=== PATIENT | female | born 1935 | race Caucasian/White ===

== ENCOUNTER 2016-12-20 07:02 | Inpatient (IN) | payer MEDICARE ==
--- NOTE | 2016-12-17 08:58 | HP ---
DATE OF CLINIC: 12/08/2016 MICHEL VIDAL : 1935 PLANNED PROCEDURE: Left Total Knee Arthroplasty DATE OF PROCEDURE: December 20, 2016 SURGEON: Sae Cabrera M.D. PCP: Dr. Naveed Bundy HISTORY OF PRESENT ILLNESS Michel Vidal is an 80 year old female. * Medication list reviewed with patient allergy list reviewed with patient. Mrs. Vidal is in today pre-operatively for her upcoming left total knee arthroplasty with Dr. Cabrera on 12/20/16. Patient presents in good spirits and is ready to proceed. She notes having a mild "cold" recently. No fever or constitutional symptoms. No prior surgical complications. Patient has visited [facility] ([facility] for post-operative rehab as she lives independently. Her recent consult with Dr. Cabrera follows: 80-year-old female here for consultation with respect to her left knee. She recently saw Lele Nina on 08/24/16. She has recently moved from [place]. 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 She has had prior intraarticular corticosteroid injections without lasting improvement. She had 3 series of viscosupplementation which "helped the right knee, but not the left". She has difficulty with weightbearing activities. She uses a cane and is limited to less than 2 blocks of walking. She is unable to squat, kneel and has difficulty rising from a chair or going up and down stairs. She has no radicular symptoms, no hip pain. Discomfort is global, but tends to be more medial. She is interested in discussion of definitive management options. Comorbidities include hypertension. After moving from [place] she has established a PCP with Dr. Naveed Bundy. She is interested in discussion of definitive management options. CURRENT MEDICATION * HydroCHLOROthiazide 25 MG Tablet 1 once a day 0 days, 0 refills * Losartan Potassium 50 MG Tablet [address] Ozzy Crane, 0 days, 0 refills * Simvastatin 20 MG Tablet 1 once a day 0 days, 0 refills PAST MEDICAL/SURGICAL HISTORY Reported: Medical: A history of cancer squamors cell, cardiac history, history of Arthritis, Depression, and Osteoporosis. Surgical / Procedural: Prior surgery nose 1997 and Breast surgery Left 1997. Surgical: * Hysterectomy 1993 SOCIAL HISTORY Behavioral: Quit smoking stopped 40 years ago after smoking 2 packs a day for 20 plus years. Smoking status: Former smoker. 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 ALLERGIES * Vicodin Reaction: itch REVIEW OF SYSTEMS Systemic: No fever and no recent weight change. Head: No head symptoms. Cardiovascular: No cardiovascular symptoms. Pulmonary: No pulmonary symptoms. Gastrointestinal: No gastrointestinal symptoms. Psychological: No psychological symptoms. Skin: No skin lesions and no rash. PHYSICAL FINDINGS * Vitals taken 12/08/2016 02:26 pm BP-Sitting R 132/80 mmHg 100 - 120/56 - 80 BP Cuff Size Regular Pulse Rate-Sitting 98 bpm 50 - 100 Temp-Oral 97 F 96 - 101 Height 60.5 in 59 - 68 Pain Level 10 * Vitals taken 12/08/2016 02:41 pm Height 61 in 59 - 68 Weight 203 lbs 94 - 170 Body Mass Index 38.4 kg/m2 Body Surface Area 1.90 m2 Ears, Nose, Throat: * ENT: normal. Lungs: * Clear to auscultation. Cardiovascular: Heart Rate and Rhythm: * Normal. Abdomen: * Normal. Neurological: Motor: * Dominant Hand = Left Hand. Patient is an obese female in no acute distress, normal-appearing mood and affect. On standing she has obvious genu varum bilaterally and walks with a stiff-legged, antalgic gait favoring the left. She has a somewhat difficult time stepping up to the exam table. Left knee exam shows skin integrity to be well-preserved, no wounds, rashes or lesions. She has an obvious varus deformity that is not correctable. Motion is 0-90 degrees actively, 0-100 degrees passively. She is tender medial greater than lateral, but fairly diffuse. Mild pain with patellar compression. Ligamentous exam shows 1+ laxity to varus stress. Drawer is negative. NT in the proximal tibial. Calf is soft and NT. Distal light touch sensation and motor function are grossly intact and symmetric. Pulses are palpable. Gentle rotation of the hip is non-irritable. Exam of the right knee shows skin integrity to be intact, no wounds, rashes or lesions. She does have a fixed varus deformity. Motion is 3-120 degrees passively. She is tender medial greater than lateral, fairly diffuse with a normal ligamentous exam. TESTS 4 views of bilateral knees from 05/14/16 as well as new radiographs from 08/24/16 of the left knee are reviewed. These show complete medial joint space loss with varus deformity on the left. There is periarticular sclerosis and marginal spurring. There are 2 calcifications posteromedially. There is fairly notable lateral facet narrowing as well. Lateral compartment is relatively well preserved. Right knee from her 05/14/16 films show similar changes with medial joint space loss, periarticular sclerosis and marginal spurring. Lateral and patellofemoral compartments are relatively well preserved. 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 PREVIOUS TESTS * Test: CBC WITH DIFF Report Date: 12/01/2016 WBC 5.8 10*3/mL MCV 87.8 fL BASOPHIL 0.7 % RBC 4.60 10*6/uL NEUTROPHILS 53.9 % MCH 29.8 pg MCHC 33.9 g/dL RDW 13.3 % PLATELET COUNT 189 10*3/mL IMM NEUT % 0.7 % IMM NEUT # 0.0 10*3/mL MONOCYTES 9.3 % EOSINOPHIL 1.5 % HCT 40.4 % HGB 13.7 g/L LYMPHOCYTE 33.9 % ANC 3.1 10*3/mL * Test: URINALYSIS Report Date: 12/01/2016 GLUCOSE NEGATIVE PH,URINE 7.0 SPEC. GRAVITY 1.015 KETONE NEGATIVE NITRITE NEGATIVE BLOOD NEGATIVE BILIRUBIN NEGATIVE APPEARANCE CLEAR PROTEIN NEGATIVE COLOR YELLOW LEUK ESTERASE NEGATIVE UROBILINOGEN NORMAL * Test: PROTHROMBIN TIME Report Date: 12/01/2016 PROTIME 10.7 s INR 1.02 * Test: PARTIAL THROMBOPLASTIN TIME Report Date: 12/01/2016 APTT 22.4 s Low * Test: COMPREHENSIVE METABOLIC PANEL Report Date: 12/01/2016 ALT/SGPT 35 U/L ALBUMIN 4.1 g/dL ALB/GLOB RATIO 1.6 BUN 14 mg/dL BUN/CREAT RATIO 23 High CALCIUM 9.8 mg/dL GLUCOSE 113 mg/dL High CREATININE 0.6 mg/dL SODIUM 139 meq/L POTASSIUM 3.8 meq/L CHLORIDE 102 meq/L CARBON DIOXIDE 27 meq/L ANION GAP 14 meq/L TOT PROTEIN 6.7 g/dL GLOBULIN 2.6 g/dL BILI,TOTAL 0.8 mg/dL AST/SGOT 22 U/L ALK PHOSPHATASE 52 U/L GFR 96 High * Test: MRSA SCREEN Report Date: 12/02/2016 MRSA SCREEN NEGATIVE * Test: MSSA SCREEN Report Date: 12/02/2016 MSSA SCREEN NEGATIVE FOR STAPHYLOCOCCUS AUREUS THERAPY * Patient fall risk screen positive. * Patient eligible for fall risk assessment. * Patient received fall risk assessment. PLAN * OTHER OxyCODONE HCl 5 MG TABS, 1or 2 tablets every 4 to 6 hours as needed-TO BE USED FOR AFTER SURGERY, 5 days, 0 refills TraMADol HCl 50 MG TABS, 1 po q 6 hours prn pain-TO BE USED FOR AFTER SURGERY, 5 days, 0 refills Vistaril 25 MG CAPS, 1or 2 tablets every 4 to 6 hours as needed-TO BE USED FOR AFTER SURGERY, 4 days, 0 refills * Total knee arthroplasty -Left Discussed with patient in detail the limitations, expectations as well as risks and possible complications of surgery including, but not limited to wound problems or infection, neurovascular injury, continued knee pain or dysfunction, including the possibility of prosthetic wear or failure over time that may require additional operative or non-operative treatment. Patient also realizes the perioperative risks including risks associated with anesthesia and would like to proceed. A full PAR conference was held, questions and concerns addressed and informed consent was obtained. Patient will be sent from my office for completion of the preoperative workup. [facility] consult for perioperative medical management. Patient will use aspirin 325mg daily for 6 weeks postoperatively for DVT prophylaxis. Patient would like to perform their postop rehab at [facility] with left total knee arthroplasty protocol. CARE TEAM Naveed Bundy MD [facility] CC: Naveed Bundy MD [facility] RS/sg
[~2016-12-20 07:02] MED LIST: CEFAZOLIN SODIUM 2 GRAM PREMIX 100 ML IV ONE; CELECOXIB 200 MG CAPSULE ONE; CLONIDINE HCL 0.1 MG/24 HR (7 DAY PATCH) TD ONE; FAMOTIDINE 20 MG TABLET ONE; GABAPENTIN 600 MG TABLET ONE; IV START KIT ONE; LACTATED RINGERS 1,000 ML ONE; ONDANSETRON 4 MG/2ML 2 ML VIAL ONE; OXYCODONE HCL 10 MG TAB.SR PO ONE; TRAMADOL HCL 50 MG TABLET ONE
[2016-12-20] MEDS ORDERED: TRAMADOL HCL 50 MG TABLET PO ONE (07:15)
[2016-12-20] MEDS ORDERED: ONDANSETRON 4 MG/2ML 2 ML VIAL IV ONE (07:15)
[2016-12-20] MEDS ORDERED: CELECOXIB 200 MG CAPSULE PO ONE (07:15)
[2016-12-20] MEDS ORDERED: GABAPENTIN 600 MG TABLET PO ONE (07:15)
[2016-12-20] MEDS ORDERED: CLONIDINE HCL 0.1 MG/24 HR (7 DAY PATCH) TD SCH (07:15)
[2016-12-20] MEDS ORDERED: CEFAZOLIN SODIUM 2 GRAM PREMIX 100 ML IV PRN (07:15)
[2016-12-20] MEDS ORDERED: OXYCODONE HCL 10 MG TAB.SR PO ONE (07:15)
[2016-12-20] MEDS ORDERED: FAMOTIDINE 20 MG TABLET PO ONE (07:15)
[2016-12-20] MEDS ORDERED: MIDAZOLAM HCL 1 MG/ML 2ML VIAL ONE ×2 (08:30→09:54)
[2016-12-20] MEDS ORDERED: FENTANYL 100 MCG/2 ML VIAL ONE (08:31)
[2016-12-20] MEDS ORDERED: SPINAL PROCEDURAL TRAY 1 EACH ONE (08:33)
[2016-12-20] MEDS ORDERED: ROPIVACAINE 0.2% 20 ML VIAL ONE (08:33)
[2016-12-20] MEDS ORDERED: NERVE BLOCK PROCEDURAL TRAY 1 EACH ONE (08:33)
[2016-12-20] MEDS ORDERED: POLYMYXIN B SULFATE 500,000 UNITS, BACITRACIN 25,000 UNITS in SODIUM CHLORIDE 3 L IRRIG... IR PRN (09:10)
[2016-12-20] MEDS ORDERED: TRANEXAMIC ACID 1,000 MG in SODIUM CHLORIDE 0.9% 100 ML IV PRN (09:10)
[2016-12-20] MEDS ORDERED: BUPIVACAINE 0.25% (MDV) 20 ML in SODIUM CHLORIDE 0.9% FLUSH 20 ML IF PRN (09:10)
[2016-12-20] MEDS ORDERED: BUPIVACAINE 0.25% (MDV) 24 ML, MORPHINE SULFATE 8 MG, EPINEPHRINE 0.3 MG in SODIUM CHLO... IF PRN (09:10)
[2016-12-20] MEDS ORDERED: LIDOCAINE 2% (PRES FREE) 5 ML VIAL ONE (10:10)
[2016-12-20] MEDS ORDERED: PROPOFOL 40 ML IV ONE (10:10)
[2016-12-20] MEDS ORDERED: DEXAMETHASONE SOD PHOS 4 MG/1 ML VIAL ONE (10:10)
[2016-12-20] MEDS ORDERED: EPHEDRINE SULFATE UD SYR 25 MG 25 MG/5 ML SYRINGE IV ONE (10:14)
[2016-12-20] MEDS ORDERED: ONDANSETRON 4 MG/2ML 2 ML VIAL IV PRN ×2 (10:26→12:50)
[2016-12-20] MEDS ORDERED: HYDROMORPHONE HCL 1 MG/ML SYRINGE IV PRN (10:26)
[2016-12-20] MEDS ORDERED: ATROPINE SULFATE 0.4 MG/1 ML VIAL IV PRN (10:26)
[2016-12-20] MEDS ORDERED: FENTANYL 100 MCG/2 ML VIAL IV PRN (10:26)
[2016-12-20] MEDS ORDERED: PROMETHAZINE HCL 25 MG/ML VIAL IM PRN (10:26)
[2016-12-20] MEDS ORDERED: NALOXONE HCL 0.4 MG/ML VIAL IV PRN (10:26)
[2016-12-20] MEDS ORDERED: LACTATED RINGERS 1,000 ML IV SCH (10:30)
[2016-12-20] MEDS ORDERED: ON-Q PUMP/ROPIVACAINE 0.2% 450 ML ONE (11:42)
[2016-12-20] MEDS ORDERED: PROPOFOL 20 ML IV ONE ×2 (11:56)
--- NOTE | 2016-12-20 12:01 | PCMBPN ---
Brief Post Op Note: Date of Procedure: 12/20/16 Preoperative Diagnosis: DJD left knee Postoperative Diagnosis: DJD left knee Procedure: left TKA Surgeon: Sae Cabrera MD Assist:Kelle (FAY) Anesthesia: Spinal/Adductor block (Colby) Findings: varus knee Condition: stable to PAR Complications: none IV Fluids: 1300 mLs of LR Urine Output: 150 mLs Estimated Blood Loss: 150 mLs Tourniquet Time: `40 minutes Specimens: [N/A] Implants: Attune Drains: none
[2016-12-20] MEDS: ON-Q PUMP/ROPIVACAINE 0.2% 450 ML in PREMIX BAG 1 EACH NB PRN (12:25)
[2016-12-20] MEDS ORDERED: CALCIUM CARBONATE 500 MG TAB.CHEW PO PRN (12:50)
[2016-12-20] MEDS ORDERED: TRAMADOL HCL 50 MG TABLET PO PRN (12:50)
[2016-12-20] MEDS ORDERED: HYDROMORPHONE HCL 0.5 MG/0.5 ML SYRINGE IV PRN (12:50)
[2016-12-20] MEDS ORDERED: KETOROLAC TROMETHAMINE 30 MG/ML 1 ML VIAL IV PRN (12:50)
--- NOTE | 2016-12-20 12:56 | RAD ---
HISTORY: Postop left TKR COMPARISON: Films on 08/24/2016 TECHNIQUE: two of the left knee FINDINGS: A total knee arthroplasty is present. Hardware is intact with out signs of failure or loosening. There is no fracture or dislocation. Postsurgical bandaging with soft tissue gas is present. Calcifications are present in the popliteal fossa, which could be vascular in nature. IMPRESSION: Intact hardware without fracture or dislocation. Satisfactory postoperative exam
[2016-12-20] MEDS ORDERED: ACETAMINOPHEN 500 MG TABLET PO SCH (13:00)
[2016-12-20 13:41] VITALS: BMI 38.3
[2016-12-20] MEDS ORDERED: PUMP TUBING ONE (15:50)
[2016-12-20] MEDS: D5 1/2NS with 20 mEq KCL 1,000 ML IV SCH (15:55)
[2016-12-20] MEDS: OXYCODONE HCL 5 MG TABLET PO PRN ×2 (16:00→21:08)
--- NOTE | 2016-12-20 17:57 | CONS ---
MICHEL MORALES [id number] HOSPITALIST CONSULATION DATE OF CONSULTATION: December 20, 2016 PHYSICIAN REQUESTING CONSULTATION: Sae Cabrera M.D. REASON FOR CONSULTATION: For assistance in the perioperative management of the patient's medical problems, and these medical problems include chronic essential hypertension, generalized osteoarthritis, and obesity. PROCEDURES PERFORMED DURING THE HOSPITALIZATION: Left total knee arthroplasty performed under spinal and adductor block. CHIEF COMPLAINT: Left knee pain. HISTORY OF PRESENT ILLNESS: Patient is an 81-year-old female with medical problems as listed above admitted for an elective left knee arthroplasty. PREOPERATIVE REVIEW OF SYSTEMS: Is negative for any recent fevers or chills. She denies any recent upper respiratory symptoms, cough, dyspnea, chest pain, shortness of breath, wheezing or palpitations. She has had no nausea, vomiting, abdominal pain, diarrhea or constipation. She does suffer from chronic arthralgias associated with her arthritis, primarily left knee pain. She denies any headaches, fainting, blackouts or seizures. She has had no urinary complaints. Review of systems is otherwise negative. PAST MEDICAL HISTORY: 1. She has had no recent hospitalization. 2. She has a history of chronic essential hypertension, stable on medications. 3. She denies any history of coronary artery disease. 4. She has had some hypercholesterolemia. 5. She has had some chronic depression which is stable off medications. 6. She has had generalized osteoarthritis. 7. History of multiple skin cancers. PAST SURGICAL HISTORY: Significant for: 1. Hysterectomy in 1993. 2. She had a basal cell cancer surgery removed from her nose in 1997. 3. She had a left breast surgery in 1997 for benign disease. 4. Tonsillectomy as a young adult. ALLERGIES: SHE REPORTS INTOLERANCE TO VICODIN WHICH CAUSED SEVERE ITCHING. CURRENT MEDICATIONS: Include: 1. Zocor 20 mg at bedtime. 2. Multivitamin once daily. 3. Cozaar 50 mg daily. 4. Hydrochlorothiazide 25 mg daily. 5. Enteric coated aspirin 81 mg daily. 6. In spite of her allergy, I believe she was taking [place] at home one to two tablets every four hours as needed for pain. FAMILY HISTORY: Significant for a father who had multiple myeloma and both of her parents had coronary artery disease. SOCIAL HISTORY: She is single, lives alone in [place]. She has two living sons. She is a former smoker. She quit 40 years ago after about a 30 pack-year history of smoking. She denies alcohol use. 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 Plans to recover in a residential facility like [facility]. She does have one son who lives locally. Her primary care provider is Dr. Delbert Bundy. PHYSICAL EXAMINATION: VITAL SIGNS: Body mass index is 38.4, weight is 92.1 kilograms. Temperature is 98.0, pulse 92, blood pressure 144/76, respirations 20, oxygen saturation are 100% on room air. GENERAL: This is an obese elderly female in no acute distress. HEENT: Is unremarkable. NECK: Supple without lymphadenopathy or thyromegaly. CHEST: Clear to auscultation bilaterally. HEART: Regular rate and rhythm without a murmur. ABDOMEN: Soft, nontender, nondistended with positive bowel sounds. PELVIC: Deferred. RECTAL: Deferred. EXTREMITIES: Showed no peripheral edema. She has a surgical dressing over the left knee. Dorsalis pedis pulses are 2+ in both feet. Capillary refill less than 2 seconds. SKIN: Warm, dry and intact. PREOPERATIVE LABORATORY STUDIES: Performed on December 01, 2016 included a CBC which was unremarkable with a hemoglobin of 13.7. Coagulation profile was normal. Chemistry profile also essentially normal. Urinalysis performed that day was negative. IMAGING: Chest x-ray on December 01, 2016 which showed no acute cardiopulmonary abnormality. She did have some evidence of a calcified nodule in the right upper lobe and some thoracic kyphosis and moderate spondylosis. EKG: I do not have access to any preoperative electrocardiograms. ASSESSMENT/PLAN: 1. Patient has chronic essential hypertension. She is chronically on Cozaar and hydrochlorothiazide. I will write parameters for these medications to be held if her systolic blood pressure is below 130 all of her medications will be held. If her systolic blood pressure is above 130, she can get her Cozaar and if above 140, she will get both drugs. 2. She has a history of generalized osteoarthritis which should be well managed with the usual postoperative pain medication cocktail. 3. Generalized obesity which complicates her care. 4. The hospitalist service will follow her in the perioperative period and she will return to the care of her primary care provider, Dr. Delbert Bundy, at discharge. 5. Venous thromboembolism risk is moderate and mechanical measures and aspirin will be likely used for prophylaxis. cc: Sae Cabrera M.D. Delbert Bundy M.D.
[2016-12-20] MEDS: CEFAZOLIN SODIUM 1 GRAM PREMIX 1 G in Premix (D5W) 50 ml 1 EACH IV SCH (18:07)
[2016-12-20] MEDS: ACETAMINOPHEN 500 MG TABLET PO SCH (21:07)
[2016-12-20] MEDS: ASCORBIC ACID 500 MG TABLET PO SCH (21:08)
[2016-12-20] MEDS: DOCUSATE SODIUM 100 MG CAPSULE PO SCH (21:08)
[2016-12-20] MEDS: HYDROXYZINE PAMOATE 25 MG CAPSULE PO PRN (22:09)
[2016-12-21] MEDS: D5 1/2NS with 20 mEq KCL 1,000 ML IV SCH ×4 (01:16→20:59)
[2016-12-21] MEDS: ACETAMINOPHEN 500 MG TABLET PO SCH ×4 (02:11→19:16)
[2016-12-21] MEDS: HYDROXYZINE PAMOATE 25 MG CAPSULE PO PRN (02:11)
[2016-12-21] MEDS: CEFAZOLIN SODIUM 1 GRAM PREMIX 1 G in Premix (D5W) 50 ml 1 EACH IV SCH (02:11)
[2016-12-21] MEDS: OXYCODONE HCL 5 MG TABLET PO PRN ×7 (02:12→21:05)
[2016-12-21 06:18] LABS: HEMATOCRIT 33.6 % (37.0-47.0); HEMOGLOBIN 10.6 gm/l (12.0-16.0); MEAN CELL VOLUME 93.6 fl (81.0-99.0); MEAN CORPUSCULAR HEMOGLOBIN 29.5 pg (27.0-31.0); MEAN CORPUSCULAR HGB CONC 31.5 g/dl (33.0-37.0); RED CELL DISTRIBUTION WIDTH 13.5 % (11.5-14.5)
[2016-12-21 06:41] LABS: CALCIUM 8.7 mg/dL (8.6-10.3)
[2016-12-21] MEDS ORDERED: REMOVE PATCH 1 EACH UNIT TD SCH (07:15)
[2016-12-21] MEDS: ON-Q PUMP/ROPIVACAINE 0.2% 450 ML in PREMIX BAG 1 EACH NB PRN (08:10)
[2016-12-21] MEDS: ASPIRIN (ENTERIC COATED) 325 MG TABLET.EC PO SCH (08:57)
[2016-12-21] MEDS: DOCUSATE SODIUM 100 MG CAPSULE PO SCH ×2 (08:57→21:05)
[2016-12-21] MEDS: MULTIVITAMINS 1 TAB TABLET PO SCH (08:58)
[2016-12-21] MEDS: CELECOXIB 200 MG CAPSULE PO SCH (08:58)
[2016-12-21] MEDS: ASCORBIC ACID 500 MG TABLET PO SCH ×2 (08:58→21:05)
[2016-12-21] MEDS ORDERED: CELECOXIB 100 MG CAPSULE PO SCH (09:00)
--- NOTE | 2016-12-21 11:09 | PDOC43 ---
- Subjective Findings: Pt seem this morning. She was asleep but awakes easily. Really doing well at this point. Subjective: Reports Flatus, Reports Pain Tolerable, Denies Chest Pain, Denies Shortness of Breath, Denies Nausea, Denies Vomiting, Denies Fever - Objective Vital Signs Temperature 98.4 F 12/21/16 07:25 Pulse Rate 70 12/21/16 08:35 Respiratory Rate 17 12/21/16 07:25 Blood Pressure 130/65 12/21/16 08:35 O2 Saturation by Pulse Oximetry 100 12/21/16 08:35 Oxygen Delivery Method Nasal Cannula Oxygen Flow Rate 2 Laboratory 12/21/16 05:30 12/21/16 05:30 12/21/16 05:30 RBC 3.59 L MCHC 31.5 L Estimated GFR 96 H Active Medication Orders Category Date Time Status Acetaminophen [Tylenol] Med 12/20/16 19:00 Active 1,000 mg PO Q6H Ascorbic Acid [Vitamin C] Med 12/20/16 21:00 Active 500 mg PO BID Aspirin (Enteric Coated) [Ecotrin] Med 12/21/16 09:00 Active 325 mg PO DAILY Bisacodyl [Dulcolax] Med 12/23/16 12:04 Active 10 mg [place] DAILY PRN Calcium Carbonate [Tums] Med 12/20/16 12:50 Active 1,000 - 2,000 mg PO Q2H PRN Celecoxib [Celebrex] Med 12/21/16 09:00 Active 200 mg PO DAILY D5 1/2NS with 20 mEq KCL [D51/2NS with 20 mEq KCL] 1, Med 12/20/16 12:50 Active 000 ml IV 125 mls/hr Docusate Sodium [Colace] Med 12/20/16 21:00 Active 100 mg PO BID Hydromorphone HCl [Dilaudid] Med 12/20/16 12:50 Active 0.5 mg IV Q1H PRN Hydroxyzine Pamoate [Vistaril] Med 12/20/16 12:50 Active 25 - 50 mg PO Q4H PRN Ketorolac Tromethamine [Toradol] Med 12/20/16 12:50 Active 30 mg IV Q6H PRN Magnesium Hydroxide [Milk of Magnesia] Med 12/21/16 12:04 Active 30 ml PO DAILY PRN Multivitamins [One-A-Day] Med 12/21/16 09:00 Active 1 tab PO DAILY Ondansetron 4 mg/2ml Vial [Zofran] Med 12/20/16 12:50 Active 4 - 6 mg IV Q6H PRN Oxycodone HCl [Roxicodone] Med 12/20/16 12:50 Active 5 - 10 mg PO Q4H PRN Remove Patch Med 12/21/16 12:04 Once 1 each TD X1 ONE Sodium Chloride 0.9% Flush [Normal Saline 10ml Flush] Med 12/20/16 12:50 Active 10 - 50 ml IV PRN PRN Sodium Chloride 0.9% Flush [Normal Saline 10ml Flush] Med 12/20/16 17:00 Active 10 ml IV Q8HR Tramadol HCl [Ultram] Med 12/20/16 12:50 Active 50 mg PO Q6H PRN Intake and Output 12/19/16 12/20/16 12/21/16 23:59 23:59 23:59 Intake Total 2240 2452 Output Total 1250 2050 Balance 990 402 General: Afebrile HEENT: Atraumatic Lungs: Normal Air Movement Abdomen: Non-Distended Skin: Normal Color Neurological: Alert - Left Lower Extremity Motor: Extensor Hallucis Longus: 5/5, Tibialis Anterior: 5/5, Gastrocnemius: 5/5 , Peroneals: 5/5, Quadriceps: 3/5 Gross Sensation to Light Touch: Present: Deep Peroneal Nerve Motion: Calf soft NT Knee rom 0-60 Ind SLR - Problems (1) Status post left knee replacement Status: AcuteAssessment/Plan: Pod#1 1. Physical Therapy:Mobilize with PT/OT. Encouraged bed exercise 2. Pain Control:Per protocol and nerve cath 3. DVT Prophylaxis: ASA, foot pumps and mobility 4. Disposition:Doing well at this point plan for DC tomorrow if meets criteria 5. Medical Issues: Management per hospitalist appreciate the care and consult
[2016-12-21] MEDS ORDERED: REMOVE PATCH 1 EACH UNIT TD ONE (12:04)
[2016-12-21] MEDS ORDERED: MAGNESIUM HYDROXIDE 30 ML UDCUP PO PRN (12:04)
--- NOTE | 2016-12-21 14:08 | PDOC43 ---
- Subjective Chief Complaint: knee pain Patient awake, pain tolerable about a 3. Denies any shortness of breath, she is tolerating diet. Subjective: Reports Pain Tolerable, Reports Tolerating Diet Well, Denies Shortness of Breath, Denies Cough, Denies Chest Pain, Denies Abdominal Pain, Denies Nausea, Denies Vomiting - Objective Vital Signs Temperature 97.9 F 12/21/16 11:25 Pulse Rate 76 12/21/16 11:25 Respiratory Rate 17 12/21/16 11:25 Blood Pressure 117/59 12/21/16 11:25 O2 Saturation by Pulse Oximetry 98 12/21/16 11:25 Oxygen Delivery Method Room Air Oxygen Flow Rate 0 Intake and Output 12/19/16 12/20/16 12/21/16 23:59 23:59 23:59 Intake Total 2240 2452 Output Total 1250 2050 Balance 990 402 General: Alert, Oriented x3, Cooperative, Other (morbidly obese), No Acute Distress HEENT: Atraumatic, PERRLA, EOMI, Mucous membr. moist/pink Lungs: Clear to Auscultation Bilaterally, Normal Air Movement Cardiovascular: Regular Rate and Rhythm, Normal S1, Normal S2 Abdomen: Soft, Mild Distention, No Rigid, No Tenderness, No Rebounding Extremities: No Cyanosis, No Edema, No Tenderness Neurological: Normal Speech Psych/Mental Status: Normal Mood Laboratory 12/21/16 05:30 12/21/16 05:30 12/21/16 05:30 RBC 3.59 L MCHC 31.5 L Estimated GFR 96 H Current Medications: Current meds reviewed in EMR. - Problems: Assessment/Plan (1) Status post left knee replacement Status: AcuteAssessment/Plan: Post-op day 1, doing well. Managed per ortho recommendations (2) Morbid obesity due to excess calories Status: ChronicAssessment/Plan: complicates medical care, rehab potential (3) Hypertension Qualifiers: Hypertension type: essential hypertension Qualifier Code: (I10) Essential (primary) hypertension Status: ChronicAssessment/Plan: stable (4) Hypercholesteremia Status: ChronicAssessment/Plan: stable (5) Depression Qualifiers: Depression Type: dysthymia Qualifier Code: (F34.1) Dysthymic disorder Status: ChronicAssessment/Plan: stable (6) Osteoarthritis Qualifiers: Osteoarthritis location: unspecified site Status: ChronicAssessment/Plan : may complicate rehab potential and pain management
[2016-12-21] MEDS ORDERED: SIMVASTATIN 10 MG TABLET PO SCH (20:00)
[2016-12-22] MEDS: ACETAMINOPHEN 500 MG TABLET PO SCH ×2 (01:21→07:39)
[2016-12-22] MEDS: OXYCODONE HCL 5 MG TABLET PO PRN ×3 (01:21→11:56)
[2016-12-22] MEDS: HYDROXYZINE PAMOATE 25 MG CAPSULE PO PRN (02:51)
[2016-12-22 06:57] LABS: HEMATOCRIT 32.9 % (37.0-47.0); HEMOGLOBIN 10.8 gm/l (12.0-16.0)
[2016-12-22] MEDS: MULTIVITAMINS 1 TAB TABLET PO SCH (08:31)
[2016-12-22] MEDS: ASPIRIN (ENTERIC COATED) 325 MG TABLET.EC PO SCH (08:31)
[2016-12-22] MEDS: ASCORBIC ACID 500 MG TABLET PO SCH (08:31)
[2016-12-22] MEDS: DOCUSATE SODIUM 100 MG CAPSULE PO SCH (08:31)
[2016-12-22] MEDS: CELECOXIB 200 MG CAPSULE PO SCH (08:31)
[2016-12-22] MEDS ORDERED: HYDROCHLOROTHIAZIDE 25 MG TABLET PO SCH (09:00)
[2016-12-22] MEDS ORDERED: LOSARTAN POTASSIUM 50 MG TABLET PO SCH (09:00)
--- NOTE | 2016-12-22 09:06 | PDOC43 ---
- Subjective Findings: Ortho POD 2 L TKA Patient awake, A and O times 4 this am and in good spirits. No present c/o. Denies CP/SOB/NV. Pain is very well controlled on orals, block. Taking a regular diet and had a BM. Reasonable progress with PT. Is aware of discharge planning for SNF in [facility] today. Subjective: Denies Chest Pain, Denies Shortness of Breath, Denies Nausea, Denies Vomiting, Denies Fever - Objective Vital Signs Temperature 97.7 F 12/22/16 08:00 Pulse Rate 81 12/22/16 08:00 Respiratory Rate 16 12/22/16 08:00 Blood Pressure 145/68 12/22/16 08:00 O2 Saturation by Pulse Oximetry 145 12/22/16 08:00 Oxygen Delivery Method Room Air Oxygen Flow Rate 0 Laboratory 12/22/16 06:15 12/21/16 05:30 Active Medication Orders Category Date Time Status Acetaminophen [Tylenol] Med 12/20/16 19:00 Active 1,000 mg PO Q6H Ascorbic Acid [Vitamin C] Med 12/20/16 21:00 Active 500 mg PO BID Aspirin (Enteric Coated) [Ecotrin] Med 12/21/16 09:00 Active 325 mg PO DAILY Bisacodyl [Dulcolax] Med 12/23/16 12:04 Active 10 mg [place] DAILY PRN Calcium Carbonate [Tums] Med 12/20/16 12:50 Active 1,000 - 2,000 mg PO Q2H PRN Celecoxib [Celebrex] Med 12/21/16 09:00 Active 200 mg PO DAILY Docusate Sodium [Colace] Med 12/20/16 21:00 Active 100 mg PO BID Hydrochlorothiazide Med 12/22/16 09:00 Active 25 mg PO DAILY Hydromorphone HCl [Dilaudid] Med 12/20/16 12:50 Active 0.5 mg IV Q1H PRN Hydroxyzine Pamoate [Vistaril] Med 12/20/16 12:50 Active 25 - 50 mg PO Q4H PRN Losartan Potassium [Cozaar] Med 12/22/16 09:00 Active 50 mg PO DAILY Magnesium Hydroxide [Milk of Magnesia] Med 12/21/16 12:04 Active 30 ml PO DAILY PRN Multivitamins [One-A-Day] Med 12/21/16 09:00 Active 1 tab PO DAILY On-Q Pump/Ropivacaine 0.2% 450 ml Med 12/20/16 10:26 Active Premix Bag [Premix Fluid] 1 each NB Q50H Ondansetron 4 mg/2ml Vial [Zofran] Med 12/20/16 12:50 Active 4 - 6 mg IV Q6H PRN Oxycodone HCl [Roxicodone] Med 12/20/16 12:50 Active 5 - 10 mg PO Q4H PRN Simvastatin [Zocor] Med 12/21/16 20:00 Active 20 mg PO QPM Sodium Chloride 0.9% Flush [Normal Saline 10ml Flush] Med 12/20/16 12:50 Active 10 - 50 ml IV PRN PRN Sodium Chloride 0.9% Flush [Normal Saline 10ml Flush] Med 12/20/16 17:00 Active 10 ml IV Q8HR Tramadol HCl [Ultram] Med 12/20/16 12:50 Active 50 mg PO Q6H PRN Intake and Output 12/20/16 12/21/16 12/22/16 23:59 23:59 23:59 Intake Total 2240 3552 600 Output Total 1250 2050 550 Balance 990 1502 50 Neurological: No Normal Gait (ambulating with a walker post L TKA) Peripheral Pulses: Left Posterior Tibialis: 1+, Left Dorsalis Pedis: 1+ - Left Lower Extremity Incision: Well Approximated (with a subcutaneous closure, skin glue and mesh, moderate edema. Thigh and calf are SNT), No Dressing Saturated, No Shadow Drainage, No Drainage, No Erythema, No Rash Motor: Extensor Hallucis Longus: 5/5, Tibialis Anterior: 5/5, Gastrocnemius: 4/5 , Peroneals: 5/5, Quadriceps: 4/5 Gross Sensation to Light Touch: Present: Deep Peroneal Nerve, Superficial Peroneal Nerve, Medial Plantar Nerve, Lateral Plantar Nerve, Sural Nerve, Saphenous Nerve Motion: Supine AROM knee 0-45 with passive improvement, SLR without assist. Thigh and calf SNT. Ankle full AROM. - Problems (1) Status post left knee replacement Status: AcuteAssessment/Plan: Ortho POD 2 L TKA 1. Continue Physical Therapy:Mobilize with PT/OT. Encouraged bed exercise 2. Continue Pain Control:Per protocol and nerve cath 3. Continue DVT Prophylaxis: ASA, foot pumps and mobility 4. Disposition:Doing well enough at this point to discharge to SNF in [facility]. 5. Medical Issues: Management per hospitalist appreciate the care and consult
[2016-12-22 09:52] VITALS: BP 153/66
--- NOTE | 2016-12-22 10:38 | PDOC43 ---
- Subjective Chief Complaint: knee pain Subjective: Reports Pain Tolerable, Reports Tolerating Diet Well, Denies Fever - Objective Vital Signs Temperature 97.7 F 12/22/16 08:00 Pulse Rate 74 12/22/16 08:45 Respiratory Rate 16 12/22/16 08:00 Blood Pressure 153/66 12/22/16 08:45 O2 Saturation by Pulse Oximetry 100 12/22/16 08:45 Oxygen Delivery Method Room Air Oxygen Flow Rate 0 Intake and Output 12/21/16 12/22/16 12/23/16 06:59 06:59 06:59 Intake Total 4240 2152 Output Total 2700 1150 Balance 1540 1002 General: Alert, Oriented x3, Cooperative, No Acute Distress HEENT: Mucous membr. moist/pink Lungs: Clear to Auscultation Bilaterally Cardiovascular: Regular Rate and Rhythm Abdomen: Soft, Normal Bowel Sounds, Non-Distended, No Tenderness Extremities: No Edema Wound: Dressing Clean/Dry/Intact Laboratory 12/22/16 06:15 12/21/16 05:30 Current Medications: Current meds reviewed in EMR. - Problems: Assessment/Plan (1) Status post left knee replacement Status: AcuteAssessment/Plan: Post-op day 2, doing well. Managed per ortho recommendations (2) Depression Qualifiers: Depression Type: dysthymia Qualifier Code: (F34.1) Dysthymic disorder Status: ChronicAssessment/Plan: stable (3) Hypercholesteremia Status: ChronicAssessment/Plan: stable (4) Hypertension Qualifiers: Hypertension type: essential hypertension Qualifier Code: (I10) Essential (primary) hypertension Status: ChronicAssessment/Plan: stable (5) Morbid obesity due to excess calories Status: ChronicAssessment/Plan: complicates medical care, rehab potential (6) Osteoarthritis Qualifiers: Osteoarthritis location: unspecified site Status: ChronicAssessment/Plan : may complicate rehab potential and pain management VTE Prophylaxis: mech measures plus aspirin Disposition: discharging to [facility] today
--- NOTE | 2016-12-23 09:28 | OP ---
MICHEL MORALES [id number] : 1935 PREOPERATIVE DIAGNOSIS: Degenerative joint disease left knee POSTOPERATIVE DIAGNOSIS: Same PROCEDURE: Left Total Knee Arthroplasty COMPONENTS: Attune size 5 narrow posterior stabilized cemented femoral component, size 4 cemented tibial base plate, 5mm RP articular insert, 32mm anatomic resurfacing patella. SURGEON: Sae Cabrera M.D. NURSE EMERGENCY ROOM: [facility]) ANESTHESIA: Spinal plus adductor nerve block per [place]. ESTIMATED BLOOD LOSS: 150 cc IV FLUID REPLACEMENT: per anesthesia, 1300 cc crystalloid URINE OUTPUT: 150 cc DRAINS: NONE TOURNIQUET TIME: Approximately 40 minutes COMPLICATIONS: None HISTORY: Briefly, patient is a 80-year-old female with clinical and radiographic evidence of advanced degenerative disease of their left knee. They have failed traditional non-operative management and desire elective total knee arthroplasty. For additional details, please refer to the previously dictated Preoperative History and Physical Examination. A PAR conference was held, questions and concerns were addressed, and informed consent was obtained. FINDINGS: Tricompartmental changes, eburnation medially as well as posterolaterally on the tibia and femur. There are marginal osteophytes at the patella. PROCEDURE: The patient was taken to the operating room after the placement of a spinal anesthetic and regional nerve block. They were placed supine on the operating room table, a tourniquet was applied to the proximal thigh and the left lower extremity was prepped and draped out in the usual sterile fashion. Preoperative IV antibiotics were given empirically. Intraoperative DVT prophylaxis consisted of contralateral foot pumps. Personal filtration suits were used as was a closed room environment. A WHO timeout was taken. Surgical site identified and confirmed. The leg was then elevated and the tourniquet inflated after gravity exsanguination. This was dropped after exposure and not used again until cementation. Tranexamic acid was infiltrated over 10 minutes prior to incision, 1 gram dose per protocol. A similar 2nd dose was given at initiation of closure. With the knee flexed, an anteromedial incision was made from the level of the tibial tubercle to two centimeters proximal to the superior pole of the patella. A medial arthrotomy was performed with a mini-mid vastus approach. A medial subperiosteal proximal tibial release was performed and a portion of the anterior fat pad was excised to improve visualization. The supra-patellar pouch was raised subperiosteally. The anterior and posterior cruciate ligaments were excised as were the remaining portions of the anterior horns of the medial and lateral menisci. Minimally invasive instrumentation and philosophy were used throughout the procedure in an attempt to decrease the extent of soft tissue disruption/damage. Tourniquet was released following exposure and utilized again just prior to cementation. The intramedullary femoral drill was passed followed by the intramedullary alignment obed with the 5 degree valgus bushing. We made our distal femoral cut flush with the sulcus as per our preoperative plan. Residual marginal osteophytes were removed. Attention was then directed to the tibia which was retracted anteriorly. Remaining meniscal tissue was excised. The extramedullary tibial alignment jig was placed and the proximal tibial cut made as per our preoperative plan perpendicular to the long axis of the tibia. We then confirmed the appropriateness of the extension gap. Following this, we returned attention to the femur with application of the sizer and the 3 degree external rotation jig. The corresponding 4-1 cutting block was positioned and we made the anterior and posterior condylar cuts followed by the chamfer cuts. The flexion and extension gaps were then balanced by removal of posteromedial osteophyte under direct visualization as well as a limited posterior capsular release. We then turned our attention back to the tibia and completed our tibial preparation. We trialed this for best bony coverage. We then placed the guide followed by reamer and tibial punch. We then completed the femoral preparation by cutting the notch. Femoral trial component was placed as was tibial insert. We were able to obtain full extension with nice roll back and good coronal plane alignment and stability. The patella tracked well and was prepared using the Addie patellar reaming system removing 9 mm. of bone. Osteophytes were removed prior to this with a rongeur and we performed a circumferential limited denervation using cautery. This was sized accordingly and punch holes were drilled. The knee was then re-exsanguinated and the tourniquet inflated. Double antibiotic pulsatile lavage was used to irrigate the knee and clean the cancellous cody interstices which were then carefully dried. The first periarticular injection was given, per protocol, of the posterior capsule, posteromedial knee and synovium. Two doses of high viscosity, antibiotic impregnated, polymethylmethacrylate were used to cement the femoral, tibial, and then patellar components. The knee was held in extension while the cement cured. All residual methacrylate was meticulously removed. Attention was then directed towards closure. We irrigated and the retinaculum was closed with a running #2 absorbable StratoFix suture. The 2nd periarticular injection was given, per protocol, anteromedially in the pes anserine, the extensor mechanism and IT band. The repair was checked in maximum flexion. We then lightly irrigated the subcutaneous tissue and closed with interrupted 2-0 and 3-0 Vicryl. The skin was then re-approximated with a running 4-0 subcuticular Monocryl followed by Dermabond Prineo. A sterile compression dressing was applied. The patient was then transferred to their hospital bed and sent to the post anesthesia recovery room in stable condition. They tolerated the procedure well. Sponge, instrument, and needle count were correct. CC: Naveed Drummond
[2016-12-23] MEDS ORDERED: BISACODYL 10 MG SUP PR PRN (12:04)
--- NOTE | 2016-12-23 12:15 | DS ---
Deena MORALES [id number] : 1935 DATE OF ADMISSION: December 20, 2016 DATE OF DISCHARGE: December 22, 2016 DISCHARGE DIAGNOSES: Left knee degenerative joint disease. HOSPITAL PROCEDURES: Left total knee arthroplasty. SURGEON: Sae Cabrera M.D. BRIEF HISTORY: Patient is an 80-year-old female with both clinical and radiographic evidence of advanced DJD of their left knee. For the full history please see the chart note. BRIEF HOSPITAL COURSE: Patient was admitted on December 20, 2016. Dr. Sae Cabrera performed a left total knee arthroplasty. They were moved to the recovery room in stable condition. They were given 4 doses of antibiotic for empiric coverage. DVT prophylaxis consisted of aspirin 325 mg daily, pneumatic compression HIPOLITO hose and mobility. PT was instituted postop day 1 with left total knee arthroplasty protocol, weightbearing as tolerated. Their incision site remained benign, their vital signs remained stable and they remained neurally and vascularly intact through the duration of the stay. They were discharged home on postop day, 2 to continue their convalescence at [facility] with left total knee arthroplasty protocol, weightbearing as tolerated. Jann Griffin M.D. consulted to manage the perioperative medical comorbidities. For his consultation, please see the chart note. DISCHARGE INSTRUCTIONS: 1. Keep the wound site clean. May shower with Aquacel dressing intact. Call office with any questions or concerns and f/u for your dressing change as scheduled 1 week postop. 2. Continue the use of HIPOLITO hose bilaterally. 3. Cooling unit 3-4 times daily for 30 minutes duration. 4. Outpatient PT at [facility] for right/left total knee arthroplasty protocol, weightbearing as tolerated. MEDICATIONS: 1. Patient is to resume normal preop medications. 2. Anti-coagulation will be with aspirin 325 mg daily for six weeks. 3. Pain management will be with Oxycodone, 5mg 1-2 every 4 hours prn for breakthrough pain, and Tramadol, 50mg every 6 hours prn pain, Vistaril one to two every 4 to 6 hours for nausea, Celebrex 200 mg by mouth daily for 10 days 4. Patient was also advised on utilization of a multi-vitamin with mineral daily as well as Vitamin C, 500mg daily for 1 month. 5. Patient encouraged to take an iron supplement in the form of ferrous sulfate, 325mg daily for 4 weeks. 6. Colace, 100mg, b.i.d. until regular bowel movement. FOLLOW-UP: Please return to the clinic as scheduled for your first scheduled postop check. Prior to that point in time please call with any questions or concerns. Job at [id number] CC: Heidi Bundy M.D. [facility]
== END 2016-12-22 12:45 | DRG 470 ==
LOC: OR 07:02 → MS 14:54
PROVIDERS: ADMIT Orthopaedic Surgery; ATTEND Orthopaedic Surgery
PROC: 0SRD0J9 Replacement of Left Knee Joint with Synthetic Substitute, Cemented, Open Approach (ICD-10-PCS; principal; 2016-12-20)
DX: M17.12 Unilateral primary osteoarthritis, left knee (principal); M21.162 Varus deformity, not elsewhere classified, left knee; I10 Essential (primary) hypertension; E66.01 Morbid (severe) obesity due to excess calories; Z68.38 Body mass index [BMI] 38.0-38.9, adult; E78.00 Pure hypercholesterolemia, unspecified; F34.1 Dysthymic disorder; M19.90 Unspecified osteoarthritis, unspecified site; M81.0 Age-related osteoporosis without current pathological fracture; Z87.891 Personal history of nicotine dependence; Z88.5 Allergy status to narcotic agent